=== PATIENT | male | born 1940 | race Caucasian/White ===

== ENCOUNTER 2023-11-05 06:34 | Day surgery (SDC) | payer MEDICARE, OTHER, SELFPAY ==
[2023-11-05 07:45] VITALS: BP 164/73
[2023-11-05 07:54] VITALS: BMI 25.4
[2023-11-05 09:48] VITALS: BP 130/67
[2023-11-05 09:50] VITALS: BP 130/67
[2023-11-05 10:00] VITALS: BP 133/73
[2023-11-05 10:15] VITALS: BP 145/71
[2023-11-05 10:34] VITALS: BP 132/75
== END 2023-11-05 10:35 | disposition home or self-care (01) ==
LOC: SDS 06:34
PROVIDERS: ATTENDING PHYSICIAN Internal Medicine Gastroenterology
DX: Z12.11 Encounter for screening for malignant neoplasm of colon (principal); D12.2 Benign neoplasm of ascending colon; K51.40 Inflammatory polyps of colon without complications; K57.30 Diverticulosis of large intestine without perforation or abscess without bleeding; K64.0 First degree hemorrhoids; K29.50 Unspecified chronic gastritis without bleeding; K31.89 Other diseases of stomach and duodenum; K31.7 Polyp of stomach and duodenum; K92.2 Gastrointestinal hemorrhage, unspecified; Z86.010 Personal history of colon polyps; Z87.19 Personal history of other diseases of the digestive system
CPT/HCPCS: 43251; 45385; 43237; 43239; 88305; 88342